=== PATIENT | female | born 1995 | race Caucasian/White ===

== ENCOUNTER 2022-11-09 20:33 | Inpatient (IN) ==
--- NOTE | 2022-11-09 21:00 | Emergency Department Note ---
Impression & Plan Mood disorder, Depression ED Provider Note NAME: ALAN CASILLAS AGE: 26 SEX: F : 1995 ARRIVES VIA: Walk-In INFORMANT: Patient ED PROVIDER(S): Benjamín Campos DO CHIEF COMPLAINT: depression HPI: Patient is a 26-year-old female who presents to the ER for depression. She notes that she has been very depressed over the past several weeks. Got significantly worse over the past week and even more so over the past 24 hours. She denies any suicidal or homicidal ideations. Admits to thoughts of sometimes wanting to hurt himself so she can get a break from her day to day life. She denies any auditory or visual hallucinations but admits to intrusive thoughts of her family being disappointed with her and leaving her PAST MEDICAL HISTORY:See Below PAST SURGICAL HISTORY:See Below FAMILY HISTORY:See Below SOCIAL HISTORY:See Below HOME MEDICATIONS:See Below ALLERGIES:See Below VITALS:See Below PHYSICAL EXAMINATION: GENERAL: Sitting up in bed, alert, well appearing, crying, nontoxic EYE EXAM: normal conjunctiva. OROPHARYNX: mucous membranes are moist LUNGS: Clear to auscultation. Normal chest wall mechanics HEART: no murmurs, S1 normal and S2 normal ABDOMEN: abdomen soft, non-tender, normo-active bowel sounds, no masses, no rebound or guarding. UPPER EXTREMITIES: upper extremities are grossly normal. LOWER EXTREMITIES: No pitting edema. NEURO EXAM: Normal sensorium, cranial nerves II-XII grossly intact, normal speech, no gross weakness of arms, no gross weakness of legs. PSYCH: Admits to depression but denies any suicidal ideation. Admits to thoughts of wanting to hurt herself so she can get a break from life MEDICAL DECISION MAKING: Patient is a 26-year-old female who presents ER for above-stated complaint. Blood work was obtained. External records reviewed. Patient admits to feeling very depressed and having thoughts of hurting herself to get a break from her day-to-day life. She denies any suicidal ideations. She also admits to pe rsistent intrusive thoughts. Labs were obtained and showed no significant leukocytosis or anemia. BMP with mild hypokalemia 3.3. LFTs bilirubin was unremarkable. TSH normal. UA was contaminated. negative. Tox positive for marijuana. Alcohol negative. COVID-negative. Patient was r eferred to 3 S. on a 201. She was given a dose of Ativan while here. ED OBSERVATION: The patient was placed in observation status at 2045. Medical evaluation and psychiatric evaluation. During the time in observation, the patient was frequently reassessed and received blood work which was unremarkable. On Final reassessment the patient is resting comfortably and medically stable and the patient will be admitted to 3 S. at 0045 at this time. A total observation time of 4 hours of observation. Triage Nursing notes reviewed. Limited review of prior medical records performed Vital Signs: reviewed and remarkable for no significant abnormalities Differential diagnosis: Mood disorder, infection, hypoglycemia, electrolyte abnormalities, cardiac sources, intracerebral event, toxicologic, trauma, neurologic, as well as other pathologies. ER treatment provided: See below Diagnostics interpreted by me include EKG and cardiac monitoring as listed below: -ECG: none -Laboratory studies:Interpreted by me as stated above in MDM and shown below. Imaging studies: Xrays: As interpreted by me:none CTs show: none Consultation(s): As described in MDM Procedures:none Critical Care: None Past Med/Surg History Medical History (Updated 11/10/22 @ 00:08 by Benjamín Campos DO) No pertinent past medical history Surgical History [place] teeth removed Family History Father Myocardial infarction Dyslipidemia Hypertension Mother No problems noted. Sister No problems noted. 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 marital status: Single Current Living Situation: Significant Other current occupational status: employed current occupation: [employer] Feels Safe at Home: Yes Childhood Exposure to Second-Hand Smoke: No Diet: regular Diet Comment: No caffeine caffeine: No Dental Care, Regularly: Yes Physical Activity Frequency: 3-4 Times per Week Seatbelt Use: always Sunscreen Use: Yes Gender Identity: Female Assistive Devices: Glasses Allergies Allergies Allergy/AdvReac Type Severity Reaction Status Date / Time No Known Allergies Allergy Verified 09/03/22 15:08 Home Meds Home Medications Medication Instructions Recorded Confirmed naproxen 500 mg tablet 500 mg PO BID PRN pain 05/16/21 11/09/22 dicyclomine 10 mg capsule 10 mg PO UD PRN Abdominal 01/09/22 11/09/22 Discomfort pantoprazole 40 mg tablet,delayed 40 mg PO DAILY PRN Abdominal 07/02/22 11/09/22 release Discomfort Previous Rx's Medication Instructions Recorded sumatriptan succinate 100 mg tablet 100 mg PO Q2H PRN migraine 02/27/21 headache #12 tabs ferrous sulfate 325 mg (65 mg 325 mg PO DAILY #30 tabs 10/17/21 iron) tablet cyanocobalamin (vitamin B-12) 2,500 mcg PO DAILY #30 tabs 10/18/21 2,500 mcg tablet escitalopram oxalate 10 mg tablet 10 mg PO DAILY #30 tabs 03/13/22 gabapentin 300 mg capsule 300 mg PO BID 30 days #60 caps 09/03/22 fludrocortisone 0.1 mg tablet 0.1 mg PO DAILY #30 tabs 09/12/22 Results & Data (ED) Vital Signs Vital Signs - 24 hr 11/09/22 20:39 11/09/22 22:53 Temperature 36.7 C Temperature Source Temporal Artery Scan Pulse Rate 137 H Pulse Rate [Finger] 68 Respiratory Rate 22 18 Respiratory Effort / Characteristics Non-Labored Spontaneous Respiratory Depth Normal Blood Pressure 130/92 Blood Pressure [Left Arm] 112/78 Blood Pressure Mean 104 Blood Pressure Mean [Left Arm] 89 Blood Pressure Position [Left Arm] Sitting Pulse Oximetry 98 99 Oxygen Delivery Method Nasal Cannula Room Air Sepsis Recent Fever Within 48 Hours No Sepsis New/Unexplained Change in Mental Status No Sepsis Action Taken by Nursing No Action Required Laboratory Data 11/09/22 21:18 11/09/22 21:18 Lab Results 11/09/22 11/09/22 11/09/22 Range/Units 21:05 21:05 21:05 WBC (4.8-10.8) K/ul RBC (4.20-5.40) M/uL Hgb (12.0-16.0) g/dl Hct (37.0-47.0) % MCV (80.0-100.0) fL MCH (25.0-34.0) pg MCHC (32.0-36.0) g/dL RDW Std Deviation (36.4-46.3) fL RDW Coeff of Karl (11.5-14.5) % Plt Count (130-400) K/uL MPV (9.4-12.4) fL Immature Gran % (Auto) % Neut % (Auto) % Lymph % (Auto) % [place] % (Auto) % Eos % (Auto) % Baso % (Auto) % Neut # (Auto) (1.40-6.50) K/uL Lymph # (Auto) (1.20-3.40) K/uL [place] # (Auto) (0.11-0.59) K/uL Eos # (Auto) (0.00-0.50) K/uL Baso # (Auto) (0.00-0.20) K/uL Immature Gran # (Auto) (0.01-0.20) K/uL Sodium (136-145) mmol/L Potassium (3.5-5.1) mmol/L Chloride (98-107) mmol/L Carbon Dioxide (21-32) mmol/L Anion Gap (3-11) BUN (6-23) mg/dl Creatinine (0.6-1.2) mg/dl Est Cr Clr Drug Dosing ml/min Est GFR ( Amer) ml/min Est GFR (Non-Af Amer) ml/min BUN/Creatinine Ratio (10-20) Glucose (70-99(Fasting)) mg/dl Calcium (8.6-10.3) mg/dl Total Bilirubin (0.2-1.0) mg/dl AST (13-39) U/L ALT (7-52) U/L Alkaline Phosphatase (34-104) U/L Total Protein (6.0-8.3) gm/dl Albumin (3.4-5.0) gm/dl Globulin (2.5-4.0) gm/dl Albumin/Globulin Ratio (0.9-2) TSH (0.300-4.500) uIu/ml Urine Color Yellow Urine Appearance Cloudy A (Clear) Urine pH 6.0 (4.5-7.5) Ur Specific [place] 1.023 (1.000-1.030) Urine Protein Negative (Negative) Urine Glucose (UA) Negative (Negative) Urine Ketones 4+ H (Negative) Urine Blood Trace H (Negative) Urine Nitrite Negative (Negative) Urine Bilirubin Negative (Negative) Urine Urobilinogen Negative (Negative) Ur Leukocyte Esterase Negative (Negative) Urine WBC (Auto) 5-10 H (0-5) /hpf Urine RBC (Auto) 0-4 (0-4) /hpf U Hyaline Cast (Auto) 0 (0-5) /lpf U Epithel Cells (Auto) >30 H (0-5) /lpf Urine Bacteria (Auto) 2+ H (Negative) Urine Mucus Present A (None Prsent) Urine Test (Negative) Salicylates (3.0-30) mg/dl Urine Opiates Screen Neg (Neg) Ur Methadone, Qual Neg (Neg) Acetaminophen (10-30) ug/ml Urine Barbiturates Neg (Neg) Ur Phencyclidine (PCP) Neg (Neg) U Amphetamin/Meth Scrn Neg (Neg) MDMA (Ecstasy) Screen Neg (Neg) U Benzodiazepines Scrn Neg (Neg) Ur Cocaine Metabolite Neg (Neg) U Marijuana (THC) Screen Pos H (Neg) Ethyl Alcohol mg/dL (<10.0) mg/dl SARS-CoV-2, RNA, NAAT NEGATIVE (NEGATIVE) 11/09/22 11/09/22 11/09/22 Range/Units 21:05 21:18 21:18 WBC 9.01 (4.8-10.8) K/ul RBC 4.82 (4.20-5.40) M/uL Hgb 13.7 (12.0-16.0) g/dl Hct 37.8 (37.0-47.0) % MCV 78.4 L (80.0-100.0) fL MCH 28.4 (25.0-34.0) pg MCHC 36.2 H (32.0-36.0) g/dL RDW Std Deviation 33.4 L (36.4-46.3) fL RDW Coeff of Karl 11.9 (11.5-14.5) % Plt Count 227 (130-400) K/uL MPV 9.6 (9.4-12.4) fL Immature Gran % (Auto) 0.3 % Neut % (Auto) 67.6 % Lymph % (Auto) 25.2 % [place] % (Auto) 6.5 % Eos % (Auto) 0.1 % Baso % (Auto) 0.3 % Neut # (Auto) 6.08 (1.40-6.50) K/uL Lymph # (Auto) 2.27 (1.20-3.40) K/uL [place] # (Auto) 0.59 (0.11-0.59) K/uL Eos # (Auto) 0.01 (0.00-0.50) K/uL Baso # (Auto) 0.03 (0.00-0.20) K/uL Immature Gran # (Auto) 0.03 (0.01-0.20) K/uL Sodium 138 (136-145) mmol/L Potassium 3.3 L (3.5-5.1) mmol/L Chloride 104 (98-107) mmol/L Carbon Dioxide 20 L (21-32) mmol/L Anion Gap 14 H (3-11) BUN 15 (6-23) mg/dl Creatinine 0.58 L (0.6-1.2) mg/dl Est Cr Clr Drug Dosing 150.5 ml/min Est GFR ( Amer) 147.4 ml/min Est GFR (Non-Af Amer) 127.2 ml/min BUN/Creatinine Ratio 25.9 H (10-20) Glucose 79 (70-99(Fasting)) mg/dl Calcium 9.6 (8.6-10.3) mg/dl Total Bilirubin 0.9 (0.2-1.0) mg/dl AST 26 (13-39) U/L ALT 22 (7-52) U/L Alkaline Phosphatase 54 (34-104) U/L Total Protein 8.3 (6.0-8.3) gm/dl Albumin 5.0 (3.4-5.0) gm/dl Globulin 3.3 (2.5-4.0) gm/dl Albumin/Globulin Ratio 1.5 (0.9-2) TSH (0.300-4.500) uIu/ml Urine Color Urine Appearance (Clear) Urine pH (4.5-7.5) Ur Specific [place] (1.000-1.030) Urine Protein (Negative) Urine Glucose (UA) (Negative) Urine Ketones (Negative) Urine Blood (Negative) Urine Nitrite (Negative) Urine Bilirubin (Negative) Urine Urobilinogen (Negative) Ur Leukocyte Esterase (Negative) Urine WBC (Auto) (0-5) /hpf Urine RBC (Auto) (0-4) /hpf U Hyaline Cast (Auto) (0-5) /lpf U Epithel Cells (Auto) (0-5) /lpf Urine Bacteria (Auto) (Negative) Urine Mucus (None Prsent) Urine Test Negative (Negative) Salicylates (3.0-30) mg/dl Urine Opiates Screen (Neg) Ur Methadone, Qual (Neg) Acetaminophen (10-30) ug/ml Urine Barbiturates (Neg) Ur Phencyclidine (PCP) (Neg) U Amphetamin/Meth Scrn (Neg) MDMA (Ecstasy) Screen (Neg) U Benzodiazepines Scrn (Neg) Ur Cocaine Metabolite (Neg) U Marijuana (THC) Screen (Neg) Ethyl Alcohol mg/dL (<10.0) mg/dl SARS-CoV-2, RNA, NAAT (NEGATIVE) 11/09/22 11/09/22 11/09/22 Range/Units 21:18 21:18 21:18 WBC (4.8-10.8) K/ul RBC (4.20-5.40) M/uL Hgb (12.0-16.0) g/dl Hct (37.0-47.0) % MCV (80.0-100.0) fL MCH (25.0-34.0) pg MCHC (32.0-36.0) g/dL RDW Std Deviation (36.4-46.3) fL RDW Coeff of Karl (11.5-14.5) % Plt Count (130-400) K/uL MPV (9.4-12.4) fL Immature Gran % (Auto) % Neut % (Auto) % Lymph % (Auto) % [place] % (Auto) % Eos % (Auto) % Baso % (Auto) % Neut # (Auto) (1.40-6.50) K/uL Lymph # (Auto) (1.20-3.40) K/uL [place] # (Auto) (0.11-0.59) K/uL Eos # (Auto) (0.00-0.50) K/uL Baso # (Auto) (0.00-0.20) K/uL Immature Gran # (Auto) (0.01-0.20) K/uL Sodium (136-145) mmol/L Potassium (3.5-5.1) mmol/L Chloride (98-107) mmol/L Carbon Dioxide (21-32) mmol/L Anion Gap (3-11) BUN (6-23) mg/dl Creatinine (0.6-1.2) mg/dl Est Cr Clr Drug Dosing ml/min Est GFR ( Amer) ml/min Est GFR (Non-Af Amer) ml/min BUN/Creatinine Ratio (10-20) Glucose (70-99(Fasting)) mg/dl Calcium (8.6-10.3) mg/dl Total Bilirubin (0.2-1.0) mg/dl AST (13-39) U/L ALT (7-52) U/L Alkaline Phosphatase (34-104) U/L Total Protein (6.0-8.3) gm/dl Albumin (3.4-5.0) gm/dl Globulin (2.5-4.0) gm/dl Albumin/Globulin Ratio (0.9-2) TSH 2.868 (0.300-4.500) uIu/ml Urine Color Urine Appearance (Clear) Urine pH (4.5-7.5) Ur Specific [place] (1.000-1.030) Urine Protein (Negative) Urine Glucose (UA) (Negative) Urine Ketones (Negative) Urine Blood (Negative) Urine Nitrite (Negative) Urine Bilirubin (Negative) Urine Urobilinogen (Negative) Ur Leukocyte Esterase (Negative) Urine WBC (Auto) (0-5) /hpf Urine RBC (Auto) (0-4) /hpf U Hyaline Cast (Auto) (0-5) /lpf U Epithel Cells (Auto) (0-5) /lpf Urine Bacteria (Auto) (Negative) Urine Mucus (None Prsent) Urine Test (Negative) Salicylates < 3.0 L (3.0-30) mg/dl Urine Opiates Screen (Neg) Ur Methadone, Qual (Neg) Acetaminophen < 3 L (10-30) ug/ml Urine Barbiturates (Neg) Ur Phencyclidine (PCP) (Neg) U Amphetamin/Meth Scrn (Neg) MDMA (Ecstasy) Screen (Neg) U Benzodiazepines Scrn (Neg) Ur Cocaine Metabolite (Neg) U Marijuana (THC) Screen (Neg) Ethyl Alcohol mg/dL < 10.0 (<10.0) mg/dl SARS-CoV-2, RNA, NAAT (NEGATIVE) Administered Medications Discontinued Medications Lorazepam (Lorazepam 1 Mg Tab) 1 mg SL NOW STA Stop: 11/09/22 21:33 Last Admin: 11/09/22 21:51 Dose: 1 mg Documented By: MATTHEW Discharge Plan Visit Data Chief Complaint: Mental Health Evaluation Stated Complaint: THOUGHTS OF HURTING SELF ED Provider: Benjamín Campos Discharge Problem: Mood disorder, Depression Forms Stand Alone Forms: My [facility], Suicide Prevention Resources Prescriptions Prescriptions: No Action ferrous sulfate 325 mg (65 mg iron) tablet 325 mg PO DAILY Qty: 30 8RF cyanocobalamin (vitamin B-12) 2,500 mcg tablet 2,500 mcg PO DAILY Qty: 30 8RF escitalopram oxalate 10 mg tablet 10 mg PO DAILY Qty: 30 5RF Rx Instructions: TAKE 1 TABLET BY MOUTH EVERY DAY fludrocortisone 0.1 mg tablet 0.1 mg PO DAILY Qty: 30 11RF dicyclomine 10 mg capsule 10 mg PO UD PRN (Reason: Abdominal Discomfort) sumatriptan succinate 100 mg tablet 100 mg PO Q2H PRN (Reason: migraine headache) Qty: 12 5RF Rx Instructions: do not exceed 2 doses per 24 hrs naproxen 500 mg tablet 500 mg PO BID PRN (Reason: pain) gabapentin 300 mg capsule 300 mg PO BID 30 Days Qty: 60 3RF pantoprazole 40 mg tablet,delayed release (DR/EC) 40 mg PO DAILY PRN (Reason: Abdominal Discomfort) Referrals Referrals: Frances Perez MD [Primary Care Provider] -
[2022-11-09 21:29] LABS: Appearance Urine Cloudy (Clear); Bacteria Urine Automated 2+ (Negative); Bilirubin Urine Negative (Negative); Blood Urine Trace (Negative); Color Urine Yellow; Epithelial Cell Urine Auto >30 /lpf (0-5); Glucose Urine UA Negative (Negative); Ketones Urine 4+ (Negative); Leukocyte Esterase Urine Negative (Negative); Nitrite Urine Negative (Negative); Protein Urine Negative (Negative); Specific Gravity Urine 1.023 (1.000-1.030); Urobilinogen Urine Negative (Negative)
[2022-11-09] MEDS ORDERED: LORazepam 1 MG TAB SL STA (21:32)
[2022-11-09 21:40] LABS: Cast Urine Automated 0 /lpf (0-5); Mucus Urine Present (None Prsent); RBC Urine Automated 0-4 /hpf (0-4)
[2022-11-09 21:50] LABS: Basophils # (auto) 0.03 K/uL (0.00-0.20); Basophils % (auto) 0.3 %; Eosinophils # (auto) 0.01 K/uL (0.00-0.50); Eosinophils % (auto) 0.1 %; Hematocrit (blood only) 37.8 % (37.0-47.0); Hemoglobin 13.7 g/dl (12.0-16.0); Immature Granulocytes # (auto) 0.03 K/uL (0.01-0.20); Immature Granulocytes % (auto) 0.3 %; Lymphocytes # (auto) 2.27 K/uL (1.20-3.40); Lymphocytes % (auto) 25.2 %; Mean Corpuscular Hemoglobin 28.4 pg (25.0-34.0); Mean Corpuscular Hgb Conc 36.2 g/dL (32.0-36.0); Mean Corpuscular Volume 78.4 fL (80.0-100.0); Mean Platelet Volume 9.6 fL (9.4-12.4); Monocytes # (auto) 0.59 K/uL (0.11-0.59); Monocytes % (auto) 6.5 %; Neutrophils # (auto) 6.08 K/uL (1.40-6.50); Neutrophils % (auto) 67.6 %; Platelet Count 227 K/uL (130-400); RDW Coefficient of Variation 11.9 % (11.5-14.5); RDW Standard Deviation 33.4 fL (36.4-46.3); Red Blood Count 4.82 M/uL (4.20-5.40); White Blood Count 9.01 K/ul (4.8-10.8)
[2022-11-09 22:02] LABS: Albumin Globulin Ratio 1.5 (0.9-2); BUN Creatinine Ratio 25.9 (10-20); Bilirubin,Total 0.9 mg/dl (0.2-1.0); Calcium 9.6 mg/dl (8.6-10.3); Creatinine Clr Calc Pharmacy 150.5 ml/min; Est GFR (African American) 147.4 ml/min; Est GFR (Non-African American) 127.2 ml/min; Globulin 3.3 gm/dl (2.5-4.0); Potassium 3.3 mmol/L (3.5-5.1); Total Protein 8.3 gm/dl (6.0-8.3)
[2022-11-09 22:04] LABS: Acetaminophen < 3 ug/ml (10-30); Salicylate < 3.0 mg/dl (3.0-30)
[2022-11-09 22:08] LABS: Amphetamines+Metham, Urine Neg (Neg); Barbiturates, Urine Neg (Neg); Benzodiazepine, Urine Neg (Neg); Cocaine, Urine Neg (Neg); MDMA (Ecstacy), Urine Neg (Neg); Methadone, Urine Neg (Neg); Opiate, Urine Neg (Neg); Phencyclidine, Urine Neg (Neg)
[2022-11-09 22:51] LABS: Pregnancy Test, Urine Negative (Negative)
[2022-11-10] MEDS ORDERED: MAGNESIUM HYDROXIDE SUSP 30 ML UDC PO PRN (01:35)
[2022-11-10] MEDS ORDERED: hydrOXYzine HCl 25 MG TAB PO PRN ×2 (01:35)
[2022-11-10] MEDS ORDERED: SODIUM CHLORIDE 0.65% NA SOLN 45 ML (OCEAN) PRN (01:35)
[2022-11-10] MEDS ORDERED: ALUMINUM/MAGNESIUM SUSP 30 ML UDC PO PRN (01:35)
[2022-11-10] MEDS ORDERED: BISMUTH SUBSALICYLATE LIQD 236 ML PO PRN (01:35)
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
[2022-11-10] MEDS: ACETAMINOPHEN 325 MG TAB PO PRN (14:47)
[2022-11-10] MEDS ORDERED: PANTOprazole 40 MG TAB PO PRN (21:07)
[2022-11-10] MEDS ORDERED: SUMAtriptan succinate 100 MG TAB PO PRN (21:07)
[2022-11-10] MEDS ORDERED: DICYCLOMINE HCL 10 MG CAP PO PRN (21:07)
[2022-11-10] MEDS ORDERED: NAPROXEN 250 MG TAB PO PRN (21:07)
[2022-11-10] MEDS: clonazePAM 0.5 MG TAB PO SCH (21:29)
[2022-11-10] MEDS: GABAPENTIN 300 MG CAP PO SCH (21:29)
[2022-11-11] MEDS: clonazePAM 0.5 MG TAB PO SCH ×2 (08:33→21:01)
[2022-11-11] MEDS: CYANOCOBALAMIN (B-12) 2,500 MCG TABLET PO SCH (08:34)
[2022-11-11] MEDS: FLUDROCORTISONE ACETATE 0.1 MG TAB PO SCH (08:34)
[2022-11-11] MEDS: GABAPENTIN 300 MG CAP PO SCH ×3 (08:34→21:01)
[2022-11-11] MEDS: FERROUS SULFATE 325 MG TAB PO SCH (08:34)
[2022-11-11] MEDS ORDERED: ESCITALOPRAM OXALATE 10 MG TAB PO SCH (09:00)
[2022-11-11] MEDS ORDERED: DULoxetine HCL 30 MG CAP PO SCH (09:00)
[2022-11-11 09:27] LABS: Cortisol AM 9.88 mcg/dl (6.2-22.6)
[2022-11-11 09:45] LABS: Vitamin B12 > 1500 pg/ml (180-914)
[2022-11-11] MEDS: ACETAMINOPHEN 325 MG TAB PO PRN (10:06)
--- NOTE | 2022-11-11 15:22 | Psychiatric Progress Note ---
Date of Service November 11, 2022 Impression / Recommendations Impression 26 y/o F with history of depression and anxiety as well as complex medical problems and recent marked exacerbation of anxiety which she identifies as primary precipitant for her suicidal thoughts. 11/11/2022: All of the labs done today were normal (25-OH vitamin D was borderline at 29.5 ng/mL). Reviewed these results with her. Has tolerated increase of gabapentin and addition of duloxetine thus far with no attributed adverse effects. Discussed her hope for discharge before the end of the week. 11/10/2022: The gabapentin started recently has a good chance of treating not only the neuropathic pain for which it was prescribed but also anxiety, albeit likely at a higher dose. She may do better with an SNRI than escitalopram since the latter is typically not very effective for NAYLA and the former might also help with pain. For short-term relief, she will likely benefit from a benzodiazepine. (1) POTS (postural orthostatic tachycardia syndrome): (2) Small fiber neuropathy: (3) Major depressive disorder, single episode, moderate with anxious distress: (4) NAYLA (generalized anxiety disorder): Plan 11/11/2022: * continue escitalopram 5 mg with plan of discontinuing tomorrow - reduced 11/10/2022 from 10 mg home dose * continue duloxetine 30 mg daily with plan of titrating to 60 mg * continue gabapentin 300 mg TID - increased 11/10/2022 from BID home dose * continue clonazepam 0.5 mg BID - started 11/10/2022 11/10/2022: The patient was admitted to the [facility] ([facility] mental health unit) on q15 min checks (behavioral with suicide precautions) for safety. The patient will participate in group, recreational, and milieu therapies and will be offered additional individual and family sessions as clinically appropriate. * reduce escitalopram to 5 mg with plan of discontinuing * start duloxetine 30 mg daily with plan of titrating to 60 mg * increase gabapentin to 300 mg TID * start clonazepam 0.5 mg BID * lab, including * vitamin b12 to confirm adequacy of replacement dose * folate * 25-OH vitamin D * AM cortisol Inventory Assets Strengths: supportive relationships, has local supports,voluntary, good insight, intelligent Needs: safety and stabilization, medication adjustment, increased outpatient services Suicide Risk Level Suicide Risk Level: Moderate (q15 min suicide checks) Suicide Risk Level Comments: intrusive, passive thoughts; feels safe in hospital Risk Factors Assessment Male: No : Yes Do You Have Access To A Gun?: No Health Problems: Yes Mental Health Diagnoses: Yes Substance Use Disorders: No Previous Attempt: No Previous Psychiatric Hospitalization: No Hopelessness: Yes Protective Factors Assessment : Yes Responsible for Young Children: No Employed: Yes Stable Relationships: Yes Supportive Family: Yes Good Rapport with Provider: Yes Interval History Identifying Information ALAN CASILLAS is a 26-year-old F who currently lives with her , has a history of depression and anxiety, and was admitted on 11/10/22 00:39 on a 201 voluntary commitment for suicidal thoughts. Chief Complaint "So far, so good". Review of Systems Sleep Information Total Hours of Sleep: 6.5 Sleep Comments: Overnight admission Meal Information Percent Meal Consumed - Breakfast: 100 Percent Meal Consumed - Lunch: 100 Percent Meal Consumed - Dinner: 50 Subjective Subjective Patient was seen & assessed and interval progress reviewed in a multidisciplinary team meeting with the treatment team. For details, see the "Impression" section. Physical Exam Psychiatric Orientation: alert, oriented to person, oriented to place, oriented to time and cooperative Apperance: appropriately dressed and appropriately groomed Eye Contact: + fair eye contact Motor Behavior: no abnormal motor movements Speech: + abnormal rate/rhythm/volume of speech (slow, quiet) Affect: + constricted affect and mood congruent with affect Mood: + anxious mood and + dysphoric mood Thought Process: clear/coherent thought process Thought Content: + cognitive distortions, + hopelessness and + self deprecation; no delusions Suicidal Thoughts: + reports suicidal thoughts (intrusive, ego-dystonic), + reports suicidal plan and + reports suicidal intent Homicidal Thoughts: denies homicidal thoughts Hallucinations: no auditory hallucinations and no visual hallucinations Cognition: recent memory grossly intact, remote memory grossly intact, attention grossly intact and language grossly intact Estimated Intelligence: + above average estimated intelligence Insight: + fair insight Judgment: + fair judgement Vital Signs (Past 24 Hours) Last Vital Signs Temp 36.6 C 11/11/22 07:14 Pulse 68 11/11/22 07:14 Resp 18 11/11/22 07:14 BP 117/84 11/11/22 07:14 Pulse Ox 99 11/10/22 01:53 O2 Del Method Room Air 11/10/22 01:53 Results & Data ([facility]) Laboratory Results Laboratory Results - last 24 hr 11/11/22 11/11/22 11/11/22 08:30 08:30 08:30 ESR 10 Vitamin B12 > 1500 H 25-OH Vitamin D Total 29.5 L Folate 17.10 Cortisol AM Sample 9.88 Current Inpatient Medications Current Inpatient Medications: Current Inpatient Medications Acetaminophen (Acetaminophen 325 Mg Tab) 650 mg PO Q4H PRN PRN Reason: Headache or Minor Fever Stop: 12/10/22 01:34 Last Admin: 11/11/22 10:06 Dose: 650 mg Al Hydrox/Mg Hydrox/Simethicone (Aluminum/Magnesium Susp 30 Ml Udc) 30 ml PO Q4H PRN PRN Reason: GI Upset Stop: 12/10/22 01:34 Last Admin: 11/11/22 08:44 Dose: 30 ml Bismuth Subsalicylate (Bismuth Subsalicylate Liqd 236 Ml) 15 ml PO PRN PRN PRN Reason: Loose Stool Stop: 12/10/22 01:34 Clonazepam (Clonazepam 0.5 Mg Tab) 0.5 mg PO BID [facility] Stop: 12/10/22 21:14 Last Admin: 11/11/22 08:33 Dose: 0.5 mg Cyanocobalamin (Cyanocobalamin (B-12) 2,500 Mcg Tablet) 2,500 mcg PO DAILY ALEE Stop: 12/11/22 08:59 Last Admin: 11/11/22 08:34 Dose: 2,500 mcg Dicyclomine HCl (Dicyclomine Hcl 10 Mg Cap) 10 mg PO DAILY PRN PRN Reason: Abdominal Discomfort Stop: 12/10/22 21:06 Duloxetine HCl (Duloxetine Hcl 30 Mg Cap) 30 mg PO QAM ALEE Stop: 12/11/22 08:59 Last Admin: 11/11/22 08:34 Dose: 30 mg Escitalopram Oxalate (Escitalopram Oxalate 10 Mg Tab) 5 mg PO DAILY ALEE Stop: 12/11/22 08:59 Last Admin: 11/11/22 08:34 Dose: 5 mg Ferrous Sulfate (Ferrous Sulfate 325 Mg Tab) 325 mg PO DAILY ALEE Stop: 12/11/22 08:59 Last Admin: 11/11/22 08:34 Dose: 325 mg Fludrocortisone Acetate (Fludrocortisone Acetate 0.1 Mg Tab) 0.1 mg PO DAILY ALEE Stop: 12/11/22 08:59 Last Admin: 11/11/22 08:34 Dose: 0.1 mg Gabapentin (Gabapentin 300 Mg Cap) 300 mg PO TID ALEE Stop: 12/10/22 21:09 Last Admin: 11/11/22 13:31 Dose: 300 mg Hydroxyzine HCl (Hydroxyzine Hcl 25 Mg Tab) 50 mg PO HSZ PRN PRN Reason: Insomnia Stop: 12/10/22 01:34 Hydroxyzine HCl (Hydroxyzine Hcl 25 Mg Tab) 25 mg PO Q4H PRN PRN Reason: Anxiety Stop: 12/10/22 01:34 Magnesium Hydroxide (Magnesium Hydroxide Susp 30 Ml Udc) 30 ml PO DAILY PRN PRN Reason: Constipation Stop: 12/10/22 01:34 Naproxen (Naproxen 250 Mg Tab) 500 mg PO BID PRN PRN Reason: pain Stop: 12/10/22 21:06 Pantoprazole Sodium (Pantoprazole 40 Mg Tab) 40 mg PO DAILY PRN PRN Reason: Abdominal Discomfort Stop: 12/10/22 21:06 Sodium Chloride (Sodium Chloride 0.65% Na Soln 45 Ml ([place])) 1 - 2 sprays NA PRN PRN PRN Reason: Nasal Dryness/Congestion Stop: 12/10/22 01:34 Sumatriptan Succinate (Sumatriptan Succinate 100 Mg Tab) 100 mg PO Q2H PRN PRN Reason: migraine headache Stop: 12/10/22 21:06 Mental Health & Subst Abuse Tx Psychiatrist Name of Psychiatrist: [facility] - Dr. Sánchez Psychiatrist's Date Of Appointment With Psychiatric Provider: 11/25/22 Time of Appointment with Psychiatrist: 12:00 PM Psychiatric Appointment Comment: Telehealth Therapist Name of Therapist: OSIEL Olea Therapist's Therapy Appointment Comment: [address] [facility] [facility], [facility] [address], [place] [address] Post Discharge Appointments Primary Care Physician Name Of Family Doctor/PCP: RITIKA - Dr. Perez Primary Care Date of Future Appointment with PCP: 11/20/22 Time of Appointment with PCP: 10:20 AM Provider Appointment Comment: [address], [place], [place]
[2022-11-11] MEDS: SODIUM CHLORIDE 1 GM TABLET PO SCH (19:48)
[2022-11-12] MEDS: CYANOCOBALAMIN (B-12) 2,500 MCG TABLET PO SCH (08:54)
[2022-11-12] MEDS: clonazePAM 0.5 MG TAB PO SCH ×2 (08:54→21:45)
[2022-11-12] MEDS: FERROUS SULFATE 325 MG TAB PO SCH (08:55)
[2022-11-12] MEDS: FLUDROCORTISONE ACETATE 0.1 MG TAB PO SCH (08:55)
[2022-11-12] MEDS: SODIUM CHLORIDE 1 GM TABLET PO SCH ×3 (08:55→17:28)
[2022-11-12] MEDS: GABAPENTIN 300 MG CAP PO SCH ×3 (08:55→21:45)
[2022-11-12] MEDS: DULoxetine HCL 60 MG CAP PO SCH (08:55)
--- NOTE | 2022-11-12 09:11 | Psychiatric Progress Note ---
Date of Service November 12, 2022 Impression / Recommendations Impression 26 y/o F with history of depression and anxiety as well as complex medical problems and recent marked exacerbation of anxiety which she identifies as primary precipitant for her suicidal thoughts. 11/12/2022: Notes significant improvement in anxiety, and a little in mood and in pain. She presents as brighter in affect and is no longer having intrusive suicidal thoughts. She has tolerated addition and titration of duloxetine and titration of gabapentin with no apparent adverse effects. She looks forward to planned family meeting in the morning followed by anticipated discharge. 11/11/2022: All of the labs done today were normal (25-OH vitamin D was borderline at 29.5 ng/mL). Reviewed these results with her. Has tolerated increase of gabapentin and addition of duloxetine thus far with no attributed adverse effects. Discussed her hope for discharge before the end of the week. 11/10/2022: The gabapentin started recently has a good chance of treating not only the neuropathic pain for which it was prescribed but also anxiety, albeit likely at a higher dose. She may do better with an SNRI than escitalopram since the latter is typically not very effective for NAYLA and the former might also help with pain. For short-term relief, she will likely benefit from a benzodiazepine. (1) POTS (postural orthostatic tachycardia syndrome): (2) Small fiber neuropathy: (3) Major depressive disorder, single episode, moderate with anxious distress: (4) NAYLA (generalized anxiety disorder): Plan 11/11/2022: * discontinue escitalopram 5 mg - reduced 11/10/2022 from 10 mg home dose * increase duloxetine to 60 mg daily * continue gabapentin 300 mg TID - increased 11/10/2022 from BID home dose * continue clonazepam 0.5 mg BID - started 11/10/2022 * anticipate discharge tomorrow 11/11/2022: * continue escitalopram 5 mg with plan of discontinuing tomorrow - reduced 11/10/2022 from 10 mg home dose * continue duloxetine 30 mg daily with plan of titrating to 60 mg * continue gabapentin 300 mg TID - increased 11/10/2022 from BID home dose * continue clonazepam 0.5 mg BID - started 11/10/2022 11/10/2022: The patient was admitted to the [facility] ([facility] mental health unit) on q15 min checks (behavioral with suicide precautions) for safety. The patient will participate in group, recreational, and milieu therapies and will be offered additional individual and family sessions as clinically appropriate. * reduce escitalopram to 5 mg with plan of discontinuing * start duloxetine 30 mg daily with plan of titrating to 60 mg * increase gabapentin to 300 mg TID * start clonazepam 0.5 mg BID * lab, including * vitamin b12 to confirm adequacy of replacement dose * folate * 25-OH vitamin D * AM cortisol Inventory Assets Strengths: supportive relationships, has local supports,voluntary, good insight, intelligent Needs: safety and stabilization, medication adjustment, increased outpatient services Suicide Risk Level Suicide Risk Level: Moderate (q15 min suicide checks) Suicide Risk Level Comments: no longer having suicidal thoughts; feels safe in hospital Risk Factors Assessment Male: No : Yes Do You Have Access To A Gun?: No Health Problems: Yes Mental Health Diagnoses: Yes Substance Use Disorders: No Previous Attempt: No Previous Psychiatric Hospitalization: No Hopelessness: Yes Protective Factors Assessment : Yes Responsible for Young Children: No Employed: Yes Stable Relationships: Yes Supportive Family: Yes Good Rapport with Provider: Yes Interval History Identifying Information ALAN CASILLAS is a 26-year-old F who currently lives with her , has a history of depression and anxiety, and was admitted on 11/10/22 00:39 on a 201 voluntary commitment for suicidal thoughts. Chief Complaint "Had a bad day with POTS, but the anxiety is better". Review of Systems Sleep Information Total Hours of Sleep: 6.5 Sleep Comments: Overnight admission Meal Information Percent Meal Consumed - Breakfast: 100 Percent Meal Consumed - Lunch: 100 Percent Meal Consumed - Dinner: 100 Subjective Subjective Patient was seen & assessed and interval progress reviewed in a multidisciplinary team meeting with the treatment team. For details, see the "Impression" section. Physical Exam Psychiatric Orientation: alert, oriented to person, oriented to place, oriented to time and cooperative Apperance: appropriately dressed and appropriately groomed Eye Contact: good eye contact Motor Behavior: no abnormal motor movements Speech: + abnormal rate/rhythm/volume of speech (slow, quiet) Affect: + constricted affect and mood congruent with affect Mood: + anxious mood and + dysphoric mood Thought Process: clear/coherent thought process Thought Content: + cognitive distortions and + self deprecation; no delusions and no hopelessness Suicidal Thoughts: denies suicidal thoughts, denies suicidal plan and denies suicidal intent Homicidal Thoughts: denies homicidal thoughts Hallucinations: no auditory hallucinations and no visual hallucinations Cognition: recent memory grossly intact, remote memory grossly intact, attention grossly intact and language grossly intact Estimated Intelligence: + above average estimated intelligence Insight: + fair insight Judgment: + fair judgement Vital Signs (Past 24 Hours) Last Vital Signs Temp 36.8 C 11/12/22 06:37 Pulse 96 H 11/12/22 06:38 Resp 16 11/12/22 06:37 BP 119/74 11/12/22 06:38 Pulse Ox 99 11/10/22 01:53 O2 Del Method Room Air 11/10/22 01:53 Results & Data ([facility]) Laboratory Results Laboratory Results - last 24 hr 11/11/22 11/11/22 08:30 08:30 Vitamin B12 > 1500 H 25-OH Vitamin D Total 29.5 L Folate 17.10 Cortisol AM Sample 9.88 Current Inpatient Medications Current Inpatient Medications: Current Inpatient Medications Acetaminophen (Acetaminophen 325 Mg Tab) 650 mg PO Q4H PRN PRN Reason: Headache or Minor Fever Stop: 12/10/22 01:34 Last Admin: 11/11/22 10:06 Dose: 650 mg Al Hydrox/Mg Hydrox/Simethicone (Aluminum/Magnesium Susp 30 Ml Udc) 30 ml PO Q4H PRN PRN Reason: GI Upset Stop: 12/10/22 01:34 Last Admin: 11/11/22 08:44 Dose: 30 ml Bismuth Subsalicylate (Bismuth Subsalicylate Liqd 236 Ml) 15 ml PO PRN PRN PRN Reason: Loose Stool Stop: 12/10/22 01:34 Clonazepam (Clonazepam 0.5 Mg Tab) 0.5 mg PO BID ALEE Stop: 12/10/22 21:14 Last Admin: 11/12/22 08:54 Dose: 0.5 mg Cyanocobalamin (Cyanocobalamin (B-12) 2,500 Mcg Tablet) 2,500 mcg PO DAILY ALEE Stop: 12/11/22 08:59 Last Admin: 11/12/22 08:54 Dose: 2,500 mcg Dicyclomine HCl (Dicyclomine Hcl 10 Mg Cap) 10 mg PO DAILY PRN PRN Reason: Abdominal Discomfort Stop: 12/10/22 21:06 Duloxetine HCl (Duloxetine Hcl 60 Mg Cap) 60 mg PO QAM ALEE Stop: 12/12/22 08:59 Last Admin: 11/12/22 08:55 Dose: 60 mg Ferrous Sulfate (Ferrous Sulfate 325 Mg Tab) 325 mg PO DAILY ALEE Stop: 12/11/22 08:59 Last Admin: 11/12/22 08:55 Dose: 325 mg Fludrocortisone Acetate (Fludrocortisone Acetate 0.1 Mg Tab) 0.1 mg PO DAILY ALEE Stop: 12/11/22 08:59 Last Admin: 11/12/22 08:55 Dose: 0.1 mg Gabapentin (Gabapentin 300 Mg Cap) 300 mg PO TID ALEE Stop: 12/10/22 21:09 Last Admin: 11/12/22 08:55 Dose: 300 mg Hydroxyzine HCl (Hydroxyzine Hcl 25 Mg Tab) 50 mg PO HSZ PRN PRN Reason: Insomnia Stop: 12/10/22 01:34 Hydroxyzine HCl (Hydroxyzine Hcl 25 Mg Tab) 25 mg PO Q4H PRN PRN Reason: Anxiety Stop: 12/10/22 01:34 Magnesium Hydroxide (Magnesium Hydroxide Susp 30 Ml Udc) 30 ml PO DAILY PRN PRN Reason: Constipation Stop: 12/10/22 01:34 Naproxen (Naproxen 250 Mg Tab) 500 mg PO BID PRN PRN Reason: pain Stop: 12/10/22 21:06 Pantoprazole Sodium (Pantoprazole 40 Mg Tab) 40 mg PO DAILY PRN PRN Reason: Abdominal Discomfort Stop: 12/10/22 21:06 Sodium Chloride (Sodium Chloride 0.65% Na Soln 45 Ml ([place])) 1 - 2 sprays NA PRN PRN PRN Reason: Nasal Dryness/Congestion Stop: 12/10/22 01:34 Sodium Chloride (Sodium Chloride 1 Gm Tablet) 1 gm PO TIDM ALEE Stop: 12/11/22 17:44 Last Admin: 11/12/22 08:55 Dose: 1 gm Sumatriptan Succinate (Sumatriptan Succinate 100 Mg Tab) 100 mg PO Q2H PRN PRN Reason: migraine headache Stop: 12/10/22 21:06 Mental Health & Subst Abuse Tx Psychiatrist Name of Psychiatrist: [facility] - Dr. Sánchez Psychiatrist's Date Of Appointment With Psychiatric Provider: 11/25/22 Time of Appointment with Psychiatrist: 12:00 PM Psychiatric Appointment Comment: Telehealth Therapist Name of Therapist: OSIEL Olea Therapist's Therapy Appointment Comment: [address] [facility], [address], [place] [address] Post Discharge Appointments Primary Care Physician Name Of Family Doctor/PCP: RITIKA Perez Primary Care Date of Future Appointment with PCP: 11/20/22 Time of Appointment with PCP: 10:20 AM Provider Appointment Comment: [address], [place], [place]
[2022-11-12 09:48] LABS: Marijuana Quant, GCMS Urine 13 ng/mL (<5)
[2022-11-13] MEDS: DULoxetine HCL 60 MG CAP PO SCH (09:00)
[2022-11-13] MEDS: CYANOCOBALAMIN (B-12) 2,500 MCG TABLET PO SCH (09:00)
[2022-11-13] MEDS: SODIUM CHLORIDE 1 GM TABLET PO SCH (09:01)
[2022-11-13] MEDS: FERROUS SULFATE 325 MG TAB PO SCH (09:01)
[2022-11-13] MEDS: GABAPENTIN 300 MG CAP PO SCH (09:01)
[2022-11-13] MEDS: FLUDROCORTISONE ACETATE 0.1 MG TAB PO SCH (09:01)
[2022-11-13] MEDS: clonazePAM 0.5 MG TAB PO SCH (09:02)
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
== END 2022-11-13 10:39 | disposition home or self-care (01) | DRG 885 ==
LOC: ED 20:33 → 3S 11-10 00:39